=== PATIENT | female | born 2005 | race Caucasian/White ===

== ENCOUNTER 2025-01-24 10:06 | Outpatient (RCR) | payer BC, SELFPAY | END 2025-01-24 23:59 | disposition home or self-care (01) | LOC: RPT 10:06 | PROVIDERS: ATTENDING PHYSICIAN Obstetrics & Gynecology; FAMILY PHYSICIAN Family Medicine | DX: M62.89 Other specified disorders of muscle (principal); R10.2 Pelvic and perineal pain; N94.89 Other specified conditions associated with female genital organs and menstrual cycle; Z73.6 Limitation of activities due to disability | CPT/HCPCS: 97014; 97140; 97163; 97530 ==

== ENCOUNTER 2025-04-05 09:45 | Outpatient (RCR) | payer BC, SELFPAY | END 2025-04-05 23:59 | disposition home or self-care (01) | LOC: RPT 09:45 | PROVIDERS: ATTENDING PHYSICIAN Obstetrics & Gynecology; FAMILY PHYSICIAN Family Medicine | DX: M62.89 Other specified disorders of muscle (principal); R10.2 Pelvic and perineal pain; N94.89 Other specified conditions associated with female genital organs and menstrual cycle; Z73.6 Limitation of activities due to disability; R10.20 Pelvic and perineal pain unspecified side; M54.9 Dorsalgia, unspecified; R35.0 Frequency of micturition | CPT/HCPCS: 97140; 97530 ==

== ENCOUNTER → 2025-06-04 17:42 | Outpatient (REF) | payer BC, SELFPAY | LOC: MRI 3T 17:42 | PROVIDERS: ATTENDING PHYSICIAN Family Medicine | DX: R42 Dizziness and giddiness (principal); R11.10 Vomiting, unspecified; F50.89 Other specified eating disorder; G25.2 Other specified forms of tremor | CPT/HCPCS: 70553; A9575 ==

== ENCOUNTER 2025-06-05 09:53 | Outpatient (RCR) | payer BC, SELFPAY | END 2025-06-05 23:59 | disposition home or self-care (01) | LOC: RPT 09:53 | PROVIDERS: ATTENDING PHYSICIAN Obstetrics & Gynecology; FAMILY PHYSICIAN Family Medicine | DX: M62.89 Other specified disorders of muscle (principal); N94.89 Other specified conditions associated with female genital organs and menstrual cycle; Z73.6 Limitation of activities due to disability; R10.20 Pelvic and perineal pain unspecified side; M54.9 Dorsalgia, unspecified; R35.0 Frequency of micturition; R10.2 Pelvic and perineal pain | CPT/HCPCS: 97110; 97140; 97530 ==